=== PATIENT | male | born 1960 | race Caucasian/White ===

== ENCOUNTER 2017-04-05 09:27 | Emergency (ER) | payer OTHER ==
[~2017-04-05] VITALS: Ht 185.4 cm; Wt 113.4 kg
[~2017-04-05 09:27] MED LIST: BACTRIM DS 8001 TA1 PO; CIPRO500 MG PO; FLOMAX0.4 MG PO; KEFLEX500 MG PO; NKHM; PERCOCET 325 MG1 TA2 PO; PREDNICOT20 MG PO; VICODIN 500 MG-1 TAB PO; ZOFRAN ODT4 MG SL
== END 2017-04-05 10:42 | disposition home or self-care (01) ==
LOC: ED 09:27
DX: M70.22 Olecranon bursitis, left elbow (principal)

== ENCOUNTER → 2020-11-17 | Outpatient (CLI) | payer OTHER ==
[2020-11-17 11:52] LABS: BASO # 0.1 10*3/uL (0.0-0.1); BASO % 1.2 % (0.0-1.0); EOS # 0.2 10*3/uL (0.0-0.4); EOS % 2.2 % (1.0-4.0); HEMATOCRIT 46.3 % (42.0-52.0); LYMPH # 1.8 10*3/uL (1.3-4.4); LYMPH % 17.5 % (27.0-41.0); MEAN CELL VOLUME 92.6 fl (80.0-94.0); MEAN CORPUSCULAR HGB 32.2 pg (27.0-31.0); MEAN CORPUSCULAR HGB CONC 34.8 g/dl (33.0-37.0); MEAN PLATELET VOLUME 9.2 fl (9.6-12.3); MONO # 1.1 10*3/uL (0.1-1.0); MONO % 10.3 % (3.0-9.0); NEUT # 6.9 10*3/uL (2.3-7.9); PLATELET COUNT AUTOMATED 289 10*3/uL (130-400); RED CELL DISTRI WIDTH 12.7 % (0-14.5); WHITE BLOOD COUNT 10.2 10*3/uL (4.8-10.8)
[2020-11-18 05:06] LABS: HEP B CORE AB, IGM Negative (Negative); HEPATITIS B SURFACE AG Negative (Negative); HEPATITIS C VIRUS ANTIBODY 0.1 s/co (0.0-0.9); RHEUMATOID ARTHRITIS FACTOR <10.0 IU/mL (0.0-13.9)
[2020-11-18 18:06] LABS: LUPUS REFLEX INTERPRETATION Comment: (.); PTT-LA 29.5 sec (0.0-51.9)
[2020-11-19 02:05] LABS: CCP ANTIBODIES IGG/IGA 12 units (0-19)
[2020-11-20 14:07] LABS: ANTI-RNP ANTIBODIES <0.2 AI (0.0-0.9)
[2020-11-21 16:08] LABS: HLA-B27 ANTIGEN Negative (.)
== END | disposition home or self-care (01) ==
LOC: LAB 11:27
PROVIDERS: ATTEND Orthopaedic Surgery
DX: M19.032 Primary osteoarthritis, left wrist (principal); M79.609 Pain in unspecified limb; I10 Essential (primary) hypertension; Z79.899 Other long term (current) drug therapy